=== PATIENT | female | born 1985 | race Caucasian/White ===

== ENCOUNTER 2021-01-24 11:09 | Emergency (ER) | payer BC, SELFPAY ==
[2021-01-24 11:25] VITALS: BP 136/106; PULSE 98; RESP 18; TEMP 37.1; O2SAT 98; BMI 19.1
[2021-01-24 11:44] VITALS: BP 136/106; PULSE 89; RESP 18; O2SAT 99
--- NOTE | 2021-01-24 11:59 | ED_ITS ---
HPI - General Adult General: Chief complaint: General Medical Stated complaint: OUT OF MEDS [facility] SENT OVER Time Seen by Provider: 01/24/21 11:25 History of Present Illness: HPI narrative: 35-year-old female presents emergency room requesting medications. She is on methadone through the [facility] clinic here in town. She states she ran out of her medications or they were stolen but she cannot get a refill until Wednesday she is concerned about going into withdrawal prior to then. She called the clinic they redirected her to the ER and refused to refill her medications. Patient is anxious and tearful she is distressed about having lost her medicines. She is not had any nausea or vomiting to this point. Exacerbating factors: none Associated symptoms: Deny chest pain, confusion, cough, diaphoresis, decreased appetite, dyspnea, fevers/chills, headache(s), malaise, nausea, rash, palpitations, seizures, short of breath, syncope, vomiting or weakness Treatments prior to arrival: none Review of Systems Const: Denies: malaise or diaphoresis ENMT: Denies: throat pain, ear or mastoid pain, nasal discharge or nasal congestion Card: Denies: chest pain, palpitations or syncope Resp: Denies: dyspnea GI: Denies: nausea or vomiting : Denies: flank pain, difficulty voiding, dysuria, urinary frequency or urinary urgency Skin/Breast: Denies: rash Neuro: Denies: headache(s) or confusion Physical Exam Const: COMMON NORMALS: no acute distress GENERAL APPEARANCE: cooperative and comfortable ORIENTATION/CONSCIOUSNESS: Yes awake, Yes oriented to person, Yes oriented to place and Yes oriented to time HENMT: COMMON NORMALS: normocephalic, atraumatic and hearing grossly normal bilaterally HEAD & SCALP: normocephalic and atraumatic Neck/C-Spine: COMMON NORMALS: no JVD Resp: COMMON NORMALS: normal respiratory effort, No retractions, No use of accessory muscles and clear to auscultation bilaterally AUSCULTATION: clear to auscultation bilaterally Cardio: COMMON NORMALS: no JVD, regular rate, regular rhythm and No murmurs present (Cardio) RATE: regular rate RHYTHM: regular rhythm Neuro: SENSORIUM/ORIENTATION: Yes oriented to person, Yes oriented to place and Yes oriented to time Course Vital Signs: Vital signs: Vital Signs Temperature 98.7 F 01/24/21 11:25 Pulse Rate 89 01/24/21 11:44 Respiratory Rate 18 01/24/21 11:44 Blood Pressure 136/106 01/24/21 11:44 Pulse Oximetry 99 01/24/21 11:44 MDM - General Adult MDM Narrative: Medical decision making narrative: No withdrawal symptoms at this time will start on clonidine 0.1 twice daily she can use as needed hydroxyzine and Zofran follow-up with the clinic next week Discharge Plan Discharge Patient Disposition: Home Clinical Impression: Methadone use Condition: Stable Prescriptions: New Zofran 4 mg tablet 4 mg PO Q6H PRN (Reason: nausea and vomiting) Qty: 15 RF: 0 clonidine HCl 0.1 mg tablet 0.1 mg PO Q12H Qty: 10 RF: 0 hydroxyzine HCl 25 mg tablet 25 mg PO Q6H PRN (Reason: prn) Qty: 14 RF: 0 Discharge Orders: Discharge ED (Routine); Ordered 01/24/21 Ordered By: Channing Knight Referrals: Zackary Whitfield DO [Referring] - Patient Instructions: Opioid Safety Coding Level of Care Code ED Global Commodity Manager for Manuel Rajan
== END 2021-01-24 11:49 | disposition home or self-care (01) ==
PROVIDERS: Emergency Provider Family Medicine
DX: F11.90 Opioid use, unspecified, uncomplicated (principal)
CPT/HCPCS: 99282

== ENCOUNTER 2022-10-07 14:40 | Emergency (ER) | payer BC, SELFPAY ==
[2022-10-07 14:41] VITALS: BP 152/97; PULSE 96; RESP 18; TEMP 35.3; O2SAT 96; BMI 19.1
--- NOTE | 2022-10-07 14:45 | XR_ITS ---
WS: [id number] RIGHT FOREARM 2 VIEWS HISTORY: fall COMPARISON: None available. Acute nondisplaced radial metaphyseal fracture. Ulna is intact. Mild soft tissue edema. XR/XR forearm RT 2V [id number] IMPRESSION: Nondisplaced radial metaphyseal fracture.
--- NOTE | 2022-10-07 15:04 | W.ED.EXTPRO ---
HPI - Extremity Problem General: Chief complaint: Extremity Injury, Upper Stated complaint: slipped/arm pain Time Seen by Provider: 10/07/22 15:00 History of Present Illness: Patient is a 37-year-old female comes to the ED with right wrist injury. Injury occurred just prior to arrival. Patient was walking outside in her yard and slipped and fell backwards. She landed with her right arm extended behind her to try to catch her fall. Once she hit the ground she felt her right wrist snap and she had intense pain. Since fall she has been having throbbing pain in right wrist. Endorses decreased range of motion in right wrist due to pain. She has not taken anything for pain before coming to the ED. Associated symptoms: Deny chest pain, fever(s) or rash Review of Systems Const: Denies: fever(s), chills or fatigue Eyes: Denies: change in vision or eye discomfort ENMT: Denies: throat pain, odynophagia, nasal discharge or nasal congestion Card: Denies: chest pain, palpitations, edema, swelling of feet/ankles, dyspnea on exertion or orthopnea Resp: Denies: dyspnea, productive cough or non-productive cough GI: Denies: abdominal pain, nausea, vomiting, diarrhea, constipation or hematochezia : Denies: flank pain, dysuria or hematuria Musc: Reports: extremity pain (Right wrist) and limited range of motion (Right wrist); Denies: neck pain, back pain or extremity swelling Skin/Breast: Denies: rash or new lesions Neuro: Denies: headache(s), numbness in extremities or weakness in extremities [facility] ED PFSH: Medical History No pertinent family history Surgical History No pertinent past surgical history Physical Exam Const: COMMON NORMALS: patient oriented x3 and alert HENMT: COMMON NORMALS: normocephalic HEAD & SCALP: normocephalic MOUTH: Normal oral and palatal mucosa present THROAT: posterior oropharynx normal and uvula midline Neck/C-Spine: COMMON NORMALS: supple GENERAL: Yes normal visual inspection Resp: COMMON NORMALS: normal respiratory effort, No retractions, No use of accessory muscles and clear to auscultation bilaterally AUSCULTATION: clear to auscultation bilaterally Cardio: COMMON NORMALS: regular rate, regular rhythm, S1 normal heart sound present, S2 normal heart sound present, No gallops present (Cardio), No clicks present (Cardio), No murmurs present (Cardio) and Peripheral pulses 2+ throughout RATE: regular rate RHYTHM: regular rhythm HEART SOUNDS: S1 normal heart sound present and S2 normal heart sound present PERIPHERAL PULSES: Peripheral pulses 2+ throughout GI: COMMON NORMALS: Normal to inspection, nondistended, normoactive bowel sounds present, Soft to palpation, non-tender and no masses PALPATION: Yes Soft to palpation : COMMON NORMALS: Yes no CVA tenderness BLADDER/KIDNEY EXAM: Yes no CVA tenderness Back/Pelvis: COMMON NORMALS: no CVA tenderness Extremity: COMMON NORMALS: normal to inspection RIGHT UPPER EXTREMITY: Yes wrist Right wrist: Yes inspection (Swelling and mild deformity noted), Yes palpation (Tenderness over radial aspect), Yes ROM (Limited due to pain) and Yes neurovascular exam (Intact) Neuro: COMMON NORMALS: patient oriented x3 SENSORIUM/ORIENTATION: Yes alert GAIT: Yes Normal gait present Skin: GENERAL SKIN EXAM: dry skin Course Vital Signs: Vital signs: Vital Signs Temperature 95.5 F L 10/07/22 14:41 Pulse Rate 96 10/07/22 14:41 Respiratory Rate 18 10/07/22 14:41 Blood Pressure 152/97 10/07/22 14:41 Pulse Oximetry 96 10/07/22 14:41 Oxygen Delivery Me thod 10/07/22 14:41 MDM - Extremity (Nontraumatic) Medical Decision Making Patient is a 37-year-old female comes to the ED with right wrist pain after fall. Patient has some swelling and mild deformity of right wrist. Limited range of motion due to pain. Neurovascular tact distally. X-ray of right forearm showed a nondisplaced radial metaphyseal fracture. She was put in a volar wrist splint and I placed order with case management for patient referred to Ortho for follow-up. Return to ED precautions given. She was discharged home with a prescription for couple hydrocodone to help with pain. Return ED precautions given. Patient understood agree with plan. Lab Data Radiology Impressions Forearm X-Ray 10/07/22 14:45 IMPRESSION: Nondisplaced radial metaphyseal fracture. Discharge Plan Discharge Patient Disposition: Home Clinical Impression: Fracture of wrist Qualifiers: Encounter type: initial encounter Fracture type: closed Laterality: right Qualified Code(s): S62.101A - Fracture of unspecified carpal bone, right wrist, initial encounter for closed fracture Condition: Stable Prescriptions: No Action Zofran 4 mg tablet 4 mg PO Q6H PRN (Reason: nausea and vomiting) Qty: 15 0RF clonidine HCl 0.1 mg tablet 0.1 mg PO Q12H Qty: 10 0RF hydroxyzine HCl 25 mg tablet 25 mg PO Q6H PRN (Reason: prn) Qty: 14 0RF Discharge Orders: Discharge ED (Routine); Ordered 10/07/22 Ordered By: Marshall De Jesus Discharge Diet: Regular Discharge Activity: Increase activity as tolerated Patient Instructions: Wrist Fracture in Children (ED), Opioid Safety Activity Restrictions/Additional Instructions: Follow-up with medical provider as directed. Case management to begin taking the next several days to set up an appointment with orthopedic doctors for follow-up. Keep splint on and dry and limit activity with right arm until cleared by Ortho. Take medications as prescribed. Return to the ER or your medical provider if condition worsens. Please read and understand discharge instructions. Thank you for choosing [facility] for your healthcare needs today. Please realize this is an emergency room and that we are providing you with a medical screening exam and this may not be complete and all inclusive of all the testing and or work up that you may need to determine your ailment or severity of your illness. It is very important that you follow up as instructed or that you return to the Emergency Department should you have concerns or if your condition changes or worsens in any way. Coding Level of Care Code ED Health Care Social Worker for Manuel Rajan Exam Comprehensive
[2022-10-07] MEDS: HYDROcodone-acetaminophen 7.5-325 mg Tablet 1 TAB PO (15:34)
--- NOTE | 2022-10-08 08:55 | DCPLANNER ---
Addendum entered by Filomena Manning 10/15/22 15:40: attempt made to contact patient - states not accepting msgs no vm option - mailed letter to have her contact our clinic to schedule w/ dr hodgson Original Note: manager of drilling had message to schedule a follow up appointment for patient with ortho. manager of drilling sent patients information to the front office staff at ortho. Patients information will be printed and reviewed. Clinic will call patient with appointment information.
== END 2022-10-07 16:12 | disposition home or self-care (01) ==
PROVIDERS: Emergency Provider Physician Assistant
DX: S59.291A Other physeal fracture of lower end of radius, right arm, initial encounter for closed fracture (principal); W01.0XXA Fall on same level from slipping, tripping and stumbling without subsequent striking against object, initial encounter
CPT/HCPCS: 29125; 73090; 99283

== ENCOUNTER 2025-07-14 19:30 | Emergency (ER) | payer SELFPAY ==
--- OUTSIDE RECORDS SUMMARY | 2016-04-15 10:08 | XMS_ITS | Continuity of Care Document ---
Author Organization [facility] Address [address] [place] [address] Phone Care Team Providers Care Computer Game Designer Name Role Phone Damir Acevedo MD Unavailable Unavailable Medications Medication Instructions Dosage Effective Dates (start - stop) Status Comments ibuprofen 200 mg capsule take 2 capsule by oral route every 4 hours as needed 400 MG - Active Neurontin 300 mg capsule take 1 capsule by oral route 3 times every day 300 MG - Active Tylenol-Codeine #3 300 mg-30 mg tablet take 1 tablet by oral route every 8 hours as needed 1 tablet - Active Procedures Procedure Date Nerve Root Injection, Single Cervic Moderate Sedation Advance Directives Directive Yes / No Effective Date File Name No Information Encounters Encounter Description Practice Location Reason(s) For Visit Diagnoses Date Provider Providers Copied on [facility] [address] [place] [address], [id number], tel:[phone] [facility] [place] Other cervical disc displacement, mid-cervical regionSpinal stenosis, cervical regionRadicul opathy, cervical region 0201 [address] Curtis Reich. [address], [address], [place], [place], [id number], [place]. tel:[phone] Referring Provider: Efrain Das, [address], [place], [address] . tel:[phone] [facility], [address] [place] [address] [address], [place], [place], [id number], tel:[phone] [facility] [place] No Information 6 Jeannine Ambrosio. [address], [address], [place], [id number], . tel:[phone] Family History Family Member Type Diagnosis Age At Onset No Information Payers Payer name Insurance type Covered constitution party ID Authoriza tion(s) [employer] PPO BL [id number] None Requi red Social History Type Description Quantity Date Captured Comments Sex Female Smoking Status No Information Chief Complaint And Reason For Visit No Information Reason For Referral Reason For Referral No Information History Of Present Illness Encounter Date Complaint History Of Prese nt Illness No Information Functional Status Date Functional Assessmen t No Information Instructions Date Instruction Additional Infor mation No Information Assessments Type Assessment Date No Information Patient Care Teams Name Effective Dates (start - stop) Status Members No Information
[2025-07-14 19:33] VITALS: BP 147/106; PULSE 90; RESP 16; TEMP 36.3; O2SAT 97; BMI 21.6
--- NOTE | 2025-07-14 21:31 | W.ED.DENTAL ---
HPI - Dental/Oral General: Chief complaint: Dental/Oral Stated complaint: right side dental pain face swollen Time Seen by Provider: 07/14/25 19:50 Source: patient Mode of arrival: ambulatory Limitations: no limitations History of Present Illness: Patient is a 39-year-old female present to the emergency department complaining of right lower dental pain has been going on for the past few days. States that she has history of dental infections this feels similar. She has been taken Augmentin from all prescription and states that this has not been helping very much. Pain and swelling of the face is noted, she has a dentist but has not followed up. No trouble breathing, fevers, or other symptoms reported at this time. Her vitals are stable. MD Complaint: tooth pain Associated symptoms: Denies ear or mastoid pain or fever(s) Related Data Previous Rx's ?Medication ?Instructions ?Recorded amoxicillin 875 mg tablet 875 mg PO BID 10 days #20 tabs 02/04/23 clindamycin HCl 300 mg capsule 300 mg PO BID 7 days #14 caps 07/14/25 Allergies Allergy/AdvReac Type Severity Reaction Status Date / Time No Known Allergies Allergy Verified 02/04/23 15:42 Review of Systems General: Reports: 10 or more systems reviewed and unremarkable except in HPI and below Const: Denies: fever(s), chills or fatigue Eyes: Denies: change in vision ENMT: Reports: dental pain, sinus pain and other (facial swelling); Denies: throat pain, ear or mastoid pain or nasal discharge Card: Denies: chest pain, palpitations, swelling of feet/ankles or lightheadedness Resp: Denies: dyspnea, productive cough or wheezing GI: Denies: abdominal pain, nausea, vomiting, diarrhea or constipation : Denies: flank pain, difficulty voiding, dysuria or urinary frequency Musc: Denies: neck pain, back pain or joint pain Skin/Breast: Denies: rash Neuro: Denies: headache(s), numbness in extremities or weakness in extremities PFSH ED PFSH: Medical History No pertinent family history Surgical History No pertinent past surgical history Physical Exam Const: COMMON NORMALS: no acute distress and no limitations GENERAL APPEARANCE: cooperative, comfortable and well developed ORIENTATION/CONSCIOUSNESS: Yes awake HENMT: COMMON NORMALS: normocephalic, atraumatic and hearing grossly normal bilaterally HEAD & SCALP: normocephalic and atraumatic OTHER: Gingival edema and tenderness to right lower dentition. Facial swelling and tenderness to palpation extending towards the ear on the right side. Overall poor dentition and multiple caries and restorations. Eye: COMMON NORMALS: Equal, round and reactive pupils present, EOMs intact bilaterally and conjunctivae normal CONJUNCTIVA: Yes conjunctivae normal PUPIL: Yes Equal, round and reactive pupils present Neck/C-Spine: COMMON NORMALS: full ROM and supple Extremity: COMMON NORMALS: normal to inspection, full ROM and capillary refill normal Skin: COMMON NORMALS: no rashes or lesions noted GENERAL SKIN EXAM: no rashes or lesions noted Course Vital Signs: Vital signs: Vital Signs Temperature 97.4 F L 07/14/25 19:33 Pulse Rate 90 07/14/25 19:33 Respiratory Rate 16 07/14/25 19:33 Blood Pressure 147/106 07/14/25 19:33 Pulse Oximetry 97 07/14/25 19:33 Oxygen Delivery Me thod Room Air 07/14/25 19:33 MDM - Dental/Oral Medical Decision Making Patient presented with dental pain stating that this is similar to her previous dental abscess she has had. Has been able to get into dentist. On exam there is tenderness and edema to the right lower dentition, and with the pain and swelling of the face will go ahead and treat empirically with clindamycin for dental infection. Decadron shot given here, she is to follow-up with dentist. She agrees with this plan. No radiology studies performed this visit Discharge Plan Discharge Patient Disposition: Home Clinical Impression: Dental abscess Condition: Stable Prescriptions: New clindamycin HCl 300 mg capsule 300 mg PO BID 7 Days Qty: 14 0RF No Action amoxicillin 875 mg tablet 875 mg PO BID 10 Days Qty: 20 0RF Discharge Orders: Discharge ED (Routine); Ordered 07/14/25 Ordered By: Ab Rodriguez Patient Instructions: Patient Portal & Lola Instructions Activity Restrictions/Additional Instructions: Dental Abscess Discharge Instructions You have been diagnosed with a dental abscess and prescribed clindamycin to help treat the infection. Please read and follow these instructions carefully: - Take clindamycin exactly as prescribed. Do not skip doses and complete the full course, even if you start to feel better. This helps ensure the infection is fully treated and reduces the risk of antibiotic resistance. - Possible side effects: Diarrhea is common with antibiotics. If you develop severe diarrhea (watery, bloody stools), abdominal pain, or fever, stop the medication and contact your healthcare provider immediately. These may be signs of a serious infection called Clostridioides difficile (C. diff), which can be dangerous. - Other side effects: You may experience mild stomach upset, nausea, or rash. If you notice any severe or unusual symptoms, contact your provider. - Clindamycin is prescribed because you may have a penicillin allergy or cannot take penicillin. It is important to only use antibiotics when necessary and as directed. - Follow up with your dentist as soon as possible. Dental abscesses often require a procedure (such as drainage or root canal) to fully resolve the infection. Antibiotics alone are not enough. - Pain management: [id number]-lzbnfyh pain relievers like ibuprofen or acetaminophen may help with discomfort, unless you have been told not to use them. - Monitor your symptoms: If your pain, swelling, or fever worsens, or if you have trouble swallowing or breathing, seek medical attention right away. - Stop antibiotics 24 hours after your symptoms resolve, unless otherwise instructed by your dentist or doctor. If you have any questions or concerns, please contact your healthcare provider or dentist. Print Language: Jamaican Coding Level of Care Code ED Environmental Management Specialist for Manuel Rajan
== END 2025-07-14 20:52 | disposition home or self-care (01) ==
PROVIDERS: Emergency Provider Physician Assistant
DX: K04.7 Periapical abscess without sinus (principal)
CPT/HCPCS: 96372; 99284; J1100; J9999